=== PATIENT | female | born 1990 | race African-American/Black ===

== ENCOUNTER → 2019-01-14 | Outpatient (CLI) | payer OTHER ==
--- NOTE | 2019-01-14 11:41 | RAD ---
COMPLETE ABDOMINAL ULTRASOUND Clinical History: RUQ pain Comparison: None. Technique: Sonographic examination of the abdomen was performed and multiple grayscale and color Doppler static images were obtained. Findings: Portions of the spleen and left kidney are not well seen due to overlying bowel gas. Most of the liver is visualized and is homogeneous. The liver measures 15.5 cm. Ultrasound is not sensitive for detecting solid liver lesions. Portal flow is hepatopetal. The common bile duct is normal in caliber, measuring 4 mm in diameter. The gallbladder wall is normal. Per report, sonographic Estrada sign is negative. There is no cholelithiasis or pericholecystic fluid. The visualized pancreas is homogeneous. The right kidney is normal in echotexture and measures 11.1 cm. The left kidney is normal in echotexture and measures 11.2 cm. Corticomedullary differentiation is preserved. There is no hydronephrosis. The spleen is not enlarged, measuring 9.6 cm. Visualized portions of the abdominal aorta and IVC are normal. IMPRESSION: There is no acute abdominal abnormality identified sonographically. Electronically signed by: Luiz Tyler MD (01/14/2019 11:37 AM) [id number]
--- NOTE | 2019-01-14 17:16 | RAD ---
PELVIS COMPLETE Clinical Indication: RLQ Pain , 3 months. Comparison: None. TECHNIQUE: Real-time ultrasound imaging of the pelvis using transabdominal and transvaginal window is performed. Findings: Uterus measures 8.5 x 6.3 x 4.9 cm. No focal myometrial abnormality. Uterus is anteverted. The endometrial stripe is normal measuring 13 mm. There is trace fluid in the endometrial canal near the fundus. This interpretation assumes the patient is not . The ovaries are similar in size and demonstrate normal blood flow. Ovaries are not seen on transabdominal images due to overlying bowel gas. Small follicles are seen in the ovaries. There is anterior and posterior cul-de-sac free fluid. IMPRESSION: 1. Normal blood flow in the ovaries. 2. Anterior and posterior cul-de-sac free fluid. Electronically signed by: Luiz Tyler MD (01/14/2019 5:13 PM) [id number]
== END | disposition home or self-care (01) ==
LOC: US 09:43
PROVIDERS: ATTEND Physician Assistant
DX: R10.31 Right lower quadrant pain (principal); R10.11 Right upper quadrant pain
CPT/HCPCS: 76700; 76856